=== PATIENT | female | born 2000 | race Hispanic/Latino ===

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

== ENCOUNTER 2019-02-09 10:56 | Emergency (ER) | payer OTHER ==
[~2019-02-09] VITALS: Ht 162.6 cm; Wt 97.5 kg
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
--- NOTE | 2019-02-09 11:28 | NUR ---
Pt is standing on right hip to put on gown with no complaints and is smiling and laughing with mother. Pt is walking around the room on the leg with slight limp and no other complaints.
== END 2019-02-09 11:40 | disposition left against medical advice (07) ==
LOC: FSED 10:56
DX: M25.551 Pain in right hip (principal)